=== PATIENT | female | born 1950 | race Two or more races ===

== ENCOUNTER 2021-03-25 16:52 | Emergency (ER) | payer OTHER ==
[~2021-03-25] VITALS: Ht 157.5 cm; Wt 59.0 kg
[~2021-03-25 16:52] MED LIST: CRESTOR10 MG PO; PREMARIN0.45 MG PO
[2021-03-25] MEDS ORDERED: ZESTRIL10 M1 (17:17)
== END 2021-03-25 21:44 | disposition home or self-care (01) ==
LOC: ER 16:52
DX: K59.09 Other constipation (principal); R10.11 Right upper quadrant pain